=== PATIENT | male | born 1990 | race Caucasian/White ===

== ENCOUNTER 2018-02-22 01:24 | Emergency (ER) | payer OTHER ==
[2018-02-22 01:52] VITALS: BP 119/77
[2018-02-22] MEDS ORDERED: Cyclobenzaprine 10 MG Tab PO ONE (01:52)
[2018-02-22] MEDS ORDERED: Ketorolac 10 MG Tab PO ONE (01:52)
--- NOTE | 2018-02-22 02:13 | ER ---
DATE SEEN: 02/22/2018 TIME SEEN: 0145 hours. REASON FOR VISIT: Back injury. HISTORY OF PRESENT ILLNESS: Jerod is a 28-year-old male who complains of pain in the middle of the back between the shoulder blades. The pain started when he was going up stairs, lifting a heavy weight and he dropped a weight and felt like he could not move his upper back area. Since that time, the pain is radiating to the shoulders and neck. Any movement makes it worse. It is moderate in intensity. REVIEW OF SYSTEMS: No shortness of breath, headache, or weakness of the arms. All other systems negative. PAST MEDICAL HISTORY: No active medical problems. ALLERGIES: None. PHYSICAL EXAMINATION: GENERAL: He is not in any cardiopulmonary distress. VITAL SIGNS: He is afebrile and blood pressure is normal. MUSCULOSKELETAL: Revealed tenderness in the spine, thoracic and the paraspinal muscles, around the area. Range of motion is limited, especially forward flexion and extension. LUNGS: Clear. NEUROLOGIC: Normal. MENTAL STATUS: Normal. IMPRESSION: Upper back injury. PLAN: 1. Ketorolac 10 mg q.i.d. p.r.n. 2. Flexeril 10 mg at bedtime. 3. Restrictions; not to work, lift, bend, or lift any weight for at least 24 hours. So, I would like him to be seen again tomorrow before being released to work. /[id number] UZAIR/PORSHA
== END 2018-02-22 02:18 | disposition home or self-care (01) ==
LOC: FB.ED 01:24
DX: S29.9XXA Unspecified injury of thorax, initial encounter (principal); X50.0XXA Overexertion from strenuous movement or load, initial encounter
CPT/HCPCS: 99000; 99283; A9270-GY

== ENCOUNTER 2018-05-26 01:35 | Emergency (ER) | payer OTHER ==
--- NOTE | 2018-05-26 01:59 | EDM.PDOC ---
ED HPI GENERAL MEDICAL PROBLEM - General Chief Complaint: General Stated Complaint: BODY ACHES Time Seen by Provider: 05/26/18 01:50 Source of Information: Reports: Patient History Limitations: Reports: No Limitations - History of Present Illness INITIAL COMMENTS - FREE TEXT/NARRATIVE: Complains of 1 week of bodyaches, headache, intermittent tinnitus right ear, nausea and cough. Duration: Week(s): (1) Severity: Mild body aches,headache Pain Score (Numeric/FACES): 6 - Related Data Allergies Allergy/AdvReac Type Severity Reaction Status Date / Time No Known Allergies Allergy Verified 02/22/18 01:35 Home Meds: Home Meds NK [No Known Home Meds] 12/12/16 [History] Past Medical History - Past Health History Medical/Surgical History: Denies Medical/Surgical History - Past Surgical History Musculoskeletal Surgical History: Reports: Other (See Below) Other Musculoskeletal Surgeries/Procedures:: tendon surgery to left hand Social & Family History - Family History Family Medical History: Noncontributory - Tobacco Use Smoking Status *Q: Current Some Day Smoker Years of Tobacco use: 1 Packs/Tins Daily: 0.5 - Caffeine Use Caffeine Use: Reports: Energy Drinks - Alcohol Use Days Per Week of Alcohol Use: 1 Number of Drinks Per Day: 8 Total Drinks Per Week: 8 - Recreational Drug Use Recreational Drug Use: No ED ROS GENERAL - Review of Systems Review Of Systems: See Below Constitutional: Reports: Other (bodyaches) HEENT: Reports: Other (right sided tinnitus) Respiratory: Reports: Cough. Denies: Shortness of Breath Cardiovascular: Reports: No Symptoms Endocrine: Reports: No Symptoms GI/Abdominal: Reports: Nausea. Denies: Abdominal Pain, Vomiting : Reports: No Symptoms Skin: Reports: Other (scalp pruritis). Denies: Rash Neurological: Reports: Headache Psychiatric: Reports: No Symptoms Hematologic/Lymphatic: Reports: No Symptoms Immunologic: Reports: No Symptoms ED EXAM, GENERAL - Physical Exam Exam: See Below Exam Limited By: No Limitations General Appearance: Alert, WD/WN, No Apparent Distress Eye Exam: Bilateral Eye: EOMI, PERRL Ears: Normal External Exam, Normal Canal, Normal TMs Nose: Normal Inspection, Normal Mucosa Throat/Mouth: Normal Inspection, Normal Lips, Normal Oropharynx, No Airway Compromise Head: Atraumatic, Normocephalic Neck: Normal Inspection, Supple, Full Range of Motion Respiratory/Chest: No Respiratory Distress, Lungs Clear, Normal Breath Sounds, No Accessory Muscle Use Cardiovascular: Regular Rate, Rhythm, No Gallop, No JVD, No Murmur, No Rub Back Exam: Full Range of Motion Extremities: Normal Inspection, Normal Range of Motion Neurological: Alert, Oriented, Normal Cognition Psychiatric: Normal Affect, Normal Mood Skin Exam: Warm, Dry, Intact, Normal Color, No Rash Course - Vital Signs Last Recorded V/S: Last Vital Signs Temp 37.3 C 05/26/18 01:35 Pulse 73 05/26/18 01:35 Resp 18 05/26/18 01:35 BP 126/75 05/26/18 01:35 Pulse Ox 99 05/26/18 01:35 - Orders/Labs/Meds Orders: Active Orders 24 hr Category Date Time Status UA W/MICROSCOPIC [URIN] Stat Lab 05/26/18 01:52 Ordered Labs: Laboratory Tests 05/26/18 05/26/18 05/26/18 Range/Units 01:52 02:02 02:02 WBC 5.9 (4.5-12.0) X10-3/uL RBC 4.94 (4.30-5.75) x10(6)uL Hgb 15.2 (11.5-15.5) g/dL Hct 43.8 (30.0-51.3) % MCV 88.7 (80-96) fL MCH 30.8 (27.7-33.6) pg MCHC 34.7 (32.2-35.4) g/dL RDW 11.9 (11.5-15.5) % Plt Count 283 (125-369) X10(3)uL MPV 8.4 (7.4-10.4) fL Neut % (Auto) 67.1 (46-82) % Lymph % (Auto) 22.6 (13-37) % [place] % (Auto) 9.1 (4-12) % Eos % (Auto) 1 (1.0-5.0) % Baso % (Auto) 0 (0-2) % Neut # (Auto) 4.1 (1.6-8.3) # Lymph # (Auto) 1.3 (0.6-5.0) # [place] # (Auto) 0.5 (0.0-1.3) # Eos # (Auto) 0.0 (0.0-0.8) # Baso # (Auto) 0.0 (0.0-0.2) # Sodium 139 (135-145) mmol/L Potassium 3.7 (3.5-5.3) mmol/L Chloride 101 (100-110) mmol/L Carbon Dioxide 29 (21-32) mmol/L BUN 14 (7-18) mg/dL Creatinine 1.2 (0.70-1.30) mg/dL Est Cr Clr Drug Dosing 106.56 mL/min Estimated GFR (MDRD) > 60 (>60) BUN/Creatinine Ratio 11.7 (9-20) Glucose 103 (80-116) mg/dL Calcium 9.1 (8.6-10.2) mg/dL Total Bilirubin 0.5 (0.1-1.3) mg/dL AST 17 (5-25) IU/L ALT 25 (12-36) U/L Alkaline Phosphatase 79 (56-112) IU/L Total Protein 8.1 H (6.0-8.0) g/dL Albumin 4.1 (3.5-5.2) g/dL Globulin 4.0 g/dL Albumin/Globulin Ratio 1.0 Urine Color Yellow (YELLOW) Urine Appearance Clear (CLEAR) Urine pH 7.0 H (5.0-6.5) Ur Specific [place] 1.010 (1.010-1.025) Urine Protein Negative (NEGATIVE) mg/dL Urine Glucose (UA) Normal (NEGATIVE) mg/dL Urine Ketones Negative (NEGATIVE) mg/dL Urine Occult Blood Negative (NEGATIVE) Urine Nitrite Negative (NEGATIVE) Urine Bilirubin Negative (NEGATIVE) Urine Urobilinogen Normal (NEGATIVE) mg/dL Ur Leukocyte Esterase Negative (NEGATIVE) Urine RBC 0-5 (0) Urine WBC 0-5 (0) Ur Squamous Epith Cells Occasional (NS,R,O) Urine Bacteria Rare H (NS) Departure - Departure Time of Disposition: 02:33 Disposition: Home, Self-Care 01 Condition: Good Clinical Impression: Viral syndrome - Discharge Information *PRESCRIPTION DRUG MONITORING PROGRAM REVIEWED*: No *COPY OF PRESCRIPTION DRUG MONITORING REPORT IN PATIENT WAYLON: Not Applicable Instructions: Viral Illness, Adult Referrals: PCP,None [Primary Care Provider] - Forms: ED Department Discharge - My Orders Last 24 Hours: My Active Orders 05/26/18 01:52 UA W/MICROSCOPIC [URIN] Stat - Assessment/Plan Last 24 Hours: My Active Orders 05/26/18 01:52 UA W/MICROSCOPIC [URIN] Stat
[2018-05-26 02:41] VITALS: BP 132/72
== END 2018-05-26 02:38 | disposition home or self-care (01) ==
LOC: FB.ED 01:35
DX: B34.9 Viral infection, unspecified (principal); F17.210 Nicotine dependence, cigarettes, uncomplicated
CPT/HCPCS: 36415; 80053; 81001; 85025; 99283

== ENCOUNTER 2018-12-28 13:07 | Emergency (ER) | payer SELFPAY ==
[2018-12-28] MEDS ORDERED: MVI, Adult with Vitamin K 10 ML, Thiamine 100 MG, Folic Acid 1 MG, Magnesium Sulfate 2 ... IV SCH ×5 (13:30)
--- NOTE | 2018-12-28 13:35 | EDM.PDOC ---
ED HPI GENERAL MEDICAL PROBLEM - General Chief Complaint: Abdominal Pain Stated Complaint: LOWER LEFT ABD PAIN Time Seen by Provider: 12/28/18 13:30 Source of Information: Reports: Patient History Limitations: Reports: No Limitations - History of Present Illness INITIAL COMMENTS - FREE TEXT/NARRATIVE: Presents with LLQ abdominal pain x 2 days associated with nausea. Patient has a h/o Alcohol abuse, has been on a drinking binge x 1 week (10-15 beers/day + 10 shots whiskey/day), but has been tapering x 2 days. Feels somewhat anxious, thinks he may be going though alcohol withdrawal. Last EtOH intake was 12 hours ago. Onset Date: 12/27/18 Location: Reports: Abdomen Severity: Moderate Left Lower Abdomen Pain Score (Numeric/FACES): 5 - Related Data Allergies Allergy/AdvReac Type Severity Reaction Status Date / Time No Known Allergies Allergy Verified 12/28/18 13:55 Home Meds: Home Meds chlordiazePOXIDE [Librium] See Protocol PO QID 4 Days #20 cap 12/28/18 [Rx] Past Medical History - Past Health History Medical/Surgical History: Denies Medical/Surgical History - Past Surgical History Musculoskeletal Surgical History: Reports: Other (See Below) Other Musculoskeletal Surgeries/Procedures:: tendon surgery to left hand Social & Family History - Family History Family Medical History: Noncontributory - Tobacco Use Smoking Status *Q: Never Smoker - Caffeine Use Caffeine Use: Reports: Energy Drinks - Alcohol Use Alcohol Use History: Yes Alcohol Use Frequency: Binges - Recreational Drug Use Recreational Drug Use: No ED ROS GENERAL - Review of Systems Review Of Systems: ROS reveals no pertinent complaints other than HPI. ED EXAM, GI/ABD - Physical Exam Exam: See Below Exam Limited By: No Limitations General Appearance: Alert, WD/WN, No Apparent Distress Eyes: Bilateral: Normal Appearance Ears: Normal External Exam Nose: Normal Inspection Throat/Mouth: No Airway Compromise Head: Atraumatic, Normocephalic Neck: Full Range of Motion Respiratory/Chest: No Respiratory Distress, Lungs Clear Cardiovascular: Regular Rate, Rhythm, No Murmur GI/Abdominal Exam: Normal Bowel Sounds, Soft, No Distention, Tender (mild LLQ). No: Guarding, Rebound Extremities: Normal Inspection Neurological: Alert, Normal Cognition Psychiatric: Normal Affect, Normal Mood Skin Exam: Warm, Dry, Intact Course - Vital Signs Last Recorded V/S: Last Vital Signs Temp 36.6 C 12/28/18 15:00 Pulse 93 12/28/18 16:20 Resp 18 12/28/18 16:20 BP 115/62 12/28/18 16:20 Pulse Ox 98 12/28/18 16:20 - Orders/Labs/Meds Orders: Active Orders 24 hr Category Date Time Status Abdomen 2V AP Flat Upright [CR] Stat Exams 12/28/18 15:32 Taken MVI, Adult with Vitamin K [Infuvite Adult] 10 ml Med 12/28/18 13:30 Active Thiamine [Vitamin B-1] 100 mg Folic Acid 1 mg Magnesium Sulfate [Magnesium Sulfate 50%] 2 gm Sodium Chloride 0.9% [Normal Saline] 1,000 ml IV ASDIRECTED Sodium Chloride 0.9% [Saline Flush] Med 12/28/18 13:26 Active 10 ml FLUSH ASDIRECTED PRN Saline Lock Insert [OM.PC] Routine Oth 12/28/18 13:26 Ordered Medication Orders Multivitamins/Minerals 10 ml/Thiamine HCl 100 mg/ Folic Acid 1 mg/ Magnesium Sulfate 2 gm/ Sodium Chloride 1,015.2 mls @ 500 mls/min IV ASDIRECTED GUI Last Admin: 12/28/18 14:10 Dose: 500 mls/min Sodium Chloride (Saline Flush) 10 ml FLUSH ASDIRECTED PRN PRN Reason: Keep Vein Open Last Admin: 12/28/18 16:59 Dose: 10 ml Admin: 12/28/18 13:45 Dose: 10 ml Labs: Laboratory Tests 12/28/18 12/28/18 12/28/18 Range/Units 13:45 13:45 13:45 WBC 6.1 (4.5-12.0) X10-3/uL RBC 5.17 (4.30-5.75) x10(6)uL Hgb 15.9 H (11.5-15.5) g/dL Hct 46.5 (30.0-51.3) % MCV 89.9 (80-96) fL MCH 30.8 (27.7-33.6) pg MCHC 34.3 (32.2-35.4) g/dL RDW 12.2 (11.5-15.5) % Plt Count 240 (125-369) X10(3)uL MPV 8.3 (7.4-10.4) fL Neut % (Auto) 62.5 (46-82) % Lymph % (Auto) 28.2 (13-37) % [place] % (Auto) 8.5 (4-12) % Eos % (Auto) 1 (1.0-5.0) % Baso % (Auto) 0 (0-2) % Neut # (Auto) 3.9 (1.6-8.3) # Lymph # (Auto) 1.7 (0.6-5.0) # [place] # (Auto) 0.5 (0.0-1.3) # Eos # (Auto) 0.0 (0.0-0.8) # Baso # (Auto) 0.0 (0.0-0.2) # Sodium 138 (135-145) mmol/L Potassium 3.6 (3.5-5.3) mmol/L Chloride 100 (100-110) mmol/L Carbon Dioxide 28 (21-32) mmol/L BUN 9 (7-18) mg/dL Creatinine 1.0 (0.70-1.30) mg/dL Est Cr Clr Drug Dosing TNP Estimated GFR (MDRD) > 60 (>60) BUN/Creatinine Ratio 9.0 (9-20) Glucose 101 (80-116) mg/dL Calcium 9.7 (8.6-10.2) mg/dL Magnesium 1.5 L (1.8-2.5) mg/dL Total Bilirubin 0.7 (0.1-1.3) mg/dL AST 22 D (5-25) IU/L ALT 36 D (12-36) U/L Alkaline Phosphatase 76 (56-112) IU/L Total Protein 8.1 H (6.0-8.0) g/dL Albumin 4.1 (3.5-5.2) g/dL Globulin 4.0 g/dL Albumin/Globulin Ratio 1.0 Amylase 34 (25-115) U/L Urine Color (YELLOW) Urine Appearance (CLEAR) Urine pH (5.0-6.5) Ur Specific [place] (1.010-1.025) Urine Protein (NEGATIVE) mg/dL Urine Glucose (UA) (NEGATIVE) mg/dL Urine Ketones (NEGATIVE) mg/dL Urine Occult Blood (NEGATIVE) Urine Nitrite (NEGATIVE) Urine Bilirubin (NEGATIVE) Urine Urobilinogen (NEGATIVE) mg/dL Ur Leukocyte Esterase (NEGATIVE) Urine RBC (0) Urine WBC (0) Ur Squamous Epith Cells (NS,R,O) Urine Bacteria (NS) Ethyl Alcohol < 0.03 (<0.03) % 12/28/18 Range/Units 15:00 WBC (4.5-12.0) X10-3/uL RBC (4.30-5.75) x10(6)uL Hgb (11.5-15.5) g/dL Hct (30.0-51.3) % MCV (80-96) fL MCH (27.7-33.6) pg MCHC (32.2-35.4) g/dL RDW (11.5-15.5) % Plt Count (125-369) X10(3)uL MPV (7.4-10.4) fL Neut % (Auto) (46-82) % Lymph % (Auto) (13-37) % [place] % (Auto) (4-12) % Eos % (Auto) (1.0-5.0) % Baso % (Auto) (0-2) % Neut # (Auto) (1.6-8.3) # Lymph # (Auto) (0.6-5.0) # [place] # (Auto) (0.0-1.3) # Eos # (Auto) (0.0-0.8) # Baso # (Auto) (0.0-0.2) # Sodium (135-145) mmol/L Potassium (3.5-5.3) mmol/L Chloride (100-110) mmol/L Carbon Dioxide (21-32) mmol/L BUN (7-18) mg/dL Creatinine (0.70-1.30) mg/dL Est Cr Clr Drug Dosing Estimated GFR (MDRD) (>60) BUN/Creatinine Ratio (9-20) Glucose (80-116) mg/dL Calcium (8.6-10.2) mg/dL Magnesium (1.8-2.5) mg/dL Total Bilirubin (0.1-1.3) mg/dL AST (5-25) IU/L ALT (12-36) U/L Alkaline Phosphatase (56-112) IU/L Total Protein (6.0-8.0) g/dL Albumin (3.5-5.2) g/dL Globulin g/dL Albumin/Globulin Ratio Amylase (25-115) U/L Urine Color Yellow (YELLOW) Urine Appearance Clear (CLEAR) Urine pH 7.0 H (5.0-6.5) Ur Specific [place] 1.005 L (1.010-1.025) Urine Protein Negative (NEGATIVE) mg/dL Urine Glucose (UA) Normal (NEGATIVE) mg/dL Urine Ketones Negative (NEGATIVE) mg/dL Urine Occult Blood Negative (NEGATIVE) Urine Nitrite Negative (NEGATIVE) Urine Bilirubin Negative (NEGATIVE) Urine Urobilinogen Normal (NEGATIVE) mg/dL Ur Leukocyte Esterase Negative (NEGATIVE) Urine RBC 0-5 (0) Urine WBC 0-5 (0) Ur Squamous Epith Cells Rare (NS,R,O) Urine Bacteria Rare H (NS) Ethyl Alcohol (<0.03) % Meds: Medications Generic Name Dose Route Start Last Admin Trade Name Freq PRN Reason Stop Dose Admin Multivitamins/Minerals 10 ml/ 1,015.2 mls @ 500 mls/min 12/28/18 13:30 14:10 Thiamine HCl 100 mg/ Folic IV 500 mls/min Acid 1 mg/ Magnesium Sulfate 2 ASDIRECTED GUI Administration gm/ Sodium Chloride Sodium Chloride 10 ml 12/28/18 13:26 12/28/18 16:59 Saline Flush FLUSH 10 ml ASDIRECTED PRN Administration Keep Vein Open Discontinued Medications Generic Name Dose Route Start Last Admin Trade Name Freq PRN Reason Stop Dose Admin Lorazepam 1 mg 12/28/18 15:32 12/28/18 16:56 Ativan IVPUSH 12/28/18 15:33 1 mg ONETIME ONE Administration Ondansetron HCl 4 mg 12/28/18 15:32 12/28/18 16:05 Zofran IVPUSH 12/28/18 15:33 4 mg ONETIME ONE Administration - Radiology Interpretation Free Text/Narrative:: 2V Abd XR: NAD (ED provider interpretation) - Re-Assessments/Exams Free Text/Narrative Re-Assessment/Exam: 12/28/18 17:09 Symptoms have improved. Departure - Departure Time of Disposition: 17:10 Disposition: Home, Self-Care 01 Condition: Good Clinical Impression: Abdominal pain Qualifiers: Abdominal location: left lower quadrant Qualified Code(s): R10.32 - Left lower quadrant pain Alcohol withdrawal Qualifiers: Complication of substance-induced condition: uncomplicated Qualified Code(s): F10.230 - Alcohol dependence with withdrawal, uncomplicated - Discharge Information *PRESCRIPTION DRUG MONITORING PROGRAM REVIEWED*: No *COPY OF PRESCRIPTION DRUG MONITORING REPORT IN PATIENT WAYLON: Not Applicable Prescriptions: chlordiazePOXIDE [Librium] See Protocol PO QID 4 Days #20 cap Instructions: Alcohol Use Disorder, Alcohol Withdrawal, Abdominal Pain, Adult Referrals: PCP,None [Primary Care Provider] - Forms: ED Department Discharge Additional Instructions: Fill prescription for Librium and take as directed. Do not drink alcohol while taking Librium. Take an OTC Multivitamin daily. Follow up at [facility] tomorrow. Follow up with your primary physician in 2-3 days. - My Orders Last 24 Hours: My Active Orders 12/28/18 13:26 Sodium Chloride 0.9% [Saline Flush] 10 ml FLUSH ASDIRECTED PRN Saline Lock Insert [OM.PC] Routine 12/28/18 13:30 MVI, Adult with Vitamin K [Infuvite Adult] 10 ml Thiamine [Vitamin B-1] 100 mg Folic Acid 1 mg Magnesium Sulfate [Magnesium Sulfate 50%] 2 gm Sodium Chloride 0.9% [Normal Saline] 1,000 ml IV ASDIRECTED 12/28/18 15:32 Abdomen 2V AP Flat Upright [CR] Stat - Assessment/Plan Last 24 Hours: My Active Orders 12/28/18 13:26 Sodium Chloride 0.9% [Saline Flush] 10 ml FLUSH ASDIRECTED PRN Saline Lock Insert [OM.PC] Routine 12/28/18 13:30 MVI, Adult with Vitamin K [Infuvite Adult] 10 ml Thiamine [Vitamin B-1] 100 mg Folic Acid 1 mg Magnesium Sulfate [Magnesium Sulfate 50%] 2 gm Sodium Chloride 0.9% [Normal Saline] 1,000 ml IV ASDIRECTED 12/28/18 15:32 Abdomen 2V AP Flat Upright [CR] Stat
[2018-12-28] MEDS: Sodium Chloride 0.9% 10 ML Syringe FLUSH PRN ×2 (13:45→16:59)
[2018-12-28] MEDS ORDERED: LORazepam 2 MG/ML SDV IVPUSH ONE (15:32)
[2018-12-28] MEDS ORDERED: Ondansetron 4 MG/2 ML SDV IVPUSH ONE (15:32)
[2018-12-28 17:07] VITALS: BP 115/62
--- NOTE | 2018-12-29 10:42 | CR ---
INDICATION: Left lower quadrant abdominal pain. ABDOMEN: Four images of the abdomen in supine and upright projections were obtained 12/28/18 - no comparisons. The pattern of gas and feces is nonspecific without evidence of free air or obstruction. No organomegaly, mass lesions, or pathologic calcifications were identified. There is a density in the pelvis, which likely represents distended urinary bladder. IMPRESSION: Nonacute abdomen. MTDD
== END 2018-12-28 17:40 | disposition home or self-care (01) ==
LOC: FB.ED 13:07
DX: F10.230 Alcohol dependence with withdrawal, uncomplicated (principal); R10.32 Left lower quadrant pain
CPT/HCPCS: 36415; 74019; 80053; 81001; 82150; 83735; 85025; 96365; 96366; 96375; 99284; G0480; J2060; J2405; J3411; J3475; J7030; J3490

== ENCOUNTER 2022-07-11 18:44 | Emergency (ER) | payer MEDICAID ==
[2022-07-11] MEDS ORDERED: Lidocaine 2% with EPINEPHrine 1:100,000 20 ML MDV INFILT ONE (18:45)
[2022-07-11] MEDS ORDERED: Diphtheria,Pertussis(Acell),Tetanus Vaccine 0.5 ML Syringe IM ONE (19:30)
[2022-07-11] MEDS ORDERED: Cephalexin 500 MG Cap PO ONE (19:34)
[2022-07-11] MEDS ORDERED: Diphtheria/Tetanus Toxoids,Adult (Td) 0.5 ML SDV ONE (19:34)
[2022-07-11 22:40] VITALS: BP 152/65; PULSE 81
== END 2022-07-11 19:55 | disposition home or self-care (01) ==
LOC: FB.ED 18:44
DX: S61.432A Puncture wound without foreign body of left hand, initial encounter (principal); Z23 Encounter for immunization; W27.8XXA Contact with other nonpowered hand tool, initial encounter
CPT/HCPCS: 12001; 73130-LT; 90471; 90715; 99283-25; A9270-GY

== ENCOUNTER 2022-09-14 09:35 | Emergency (ER) | payer MEDICAID ==
[2022-09-14] MEDS ORDERED: Alum Hydroxide/Mag Hydroxide 15 ML, Lidocaine 2% 15 ML PO ONE ×2 (10:01)
[2022-09-14 10:19] LABS: ESTIMATED GFR 82 mL/min (>60)
[2022-09-14 11:08] VITALS: BP 134/75; PULSE 91
== END 2022-09-14 10:57 | disposition home or self-care (01) ==
LOC: FB.ED 09:35
DX: K21.9 Gastro-esophageal reflux disease without esophagitis (principal); Z79.899 Other long term (current) drug therapy
CPT/HCPCS: 36415; 80053; 85025; 86140; 99284; A9270